=== PATIENT | female | born 1960 | race Caucasian/White ===

== ENCOUNTER 2016-11-16 09:17 | Emergency (ER) | payer MEDICAID ==
[~2016-11-16] VITALS: Ht 149.9 cm; Wt 79.9 kg
[2016-11-16 10:12] LABS: BASOPHIL % 0.4 % (0-2); PLATELET COUNT 256 x10^3mcL (130-400); RED CELL DISTRIBUTION WIDTH 13.8 % (11.5-14.5)
[2016-11-16 10:17] LABS: CALCIUM 7.8 mg/dL (8.5-10.1); CARBON DIOXIDE 27.2 mmol/L (21-32); CHLORIDE SERUM 108 mmol/L (98-107); CREATININE SERUM 0.7 mg/dL (0.6-1.0); GFR1 > 60 mL/min; GLUCOSE SERUM 82 mg/dL (74-106); POTASSIUM SERUM 3.3 mmol/L (3.5-5.1); SODIUM SERUM 141 mmol/L (136-145)
[2016-11-16 10:21] LABS: UA SPECIFIC GRAVITY 1.015 (1.005-1.035); microscopic required? YES; urine erythrocyte TRACE (NEGATIVE)
[2016-11-16 10:28] LABS: ALKALINE PHOSPHATASE 65 U/L (46-116); ALT/SGPT 31 U/L (14-59); AMYLASE 40 U/L (25-115); AST/SGOT 15 U/L (15-37); BILIRUBIN TOTAL 0.2 mg/dL (0.20-1.00); CHOLESTEROL 178 mg/dL (<200); HDL CHOLESTEROL 53 mg/dL (40-60); LIPASE 141 IU/L (73-393); T4(THYROXINE) 6.2 ug/dL (4.7-13.3)
[2016-11-16 10:38] LABS: AMPHETAMINE QUAL UR NONE DETECTED (NEG <=1000)
[2016-11-16 12:02] VITALS: BP 161/61
== END 2016-11-16 12:49 | disposition home or self-care (01) ==
LOC: ED 09:17
PROVIDERS: Emergency Medicine
DX: J45.901 Unspecified asthma with (acute) exacerbation (principal); I10 Essential (primary) hypertension; F17.200 Nicotine dependence, unspecified, uncomplicated; Z71.6 Tobacco abuse counseling
CPT/HCPCS: 36600; 82962; 83880; 99406; J2930; J7613; J7644